=== PATIENT | female | born 1985 | race Two or more races ===

== ENCOUNTER 2020-06-27 23:45 | Emergency (ER) | payer SELFPAY ==
[~2020-06-27] VITALS: Ht 154.9 cm; Wt 74.4 kg
[2020-06-28] MEDS ORDERED: PHENAZOPYRIDINE 200 MG TABLET ONE
[2020-06-28] MEDS ORDERED: PHENAZOPYRIDINE 200 MG TABLET PO ONE
--- NOTE | 2020-06-28 00:03 | NUR ---
Pyridium given from triage, urine sent to lab. Pt had labs drawn in lobby.
[2020-06-28 00:11] LABS: MICROSCOPIC INDICATED
[2020-06-28] MEDS ORDERED: CEFTRIAXONE 1,000 MG IM ONE (00:30)
[2020-06-28] MEDS ORDERED: PLEASE ENTER ALLERGIES MC SCH (00:30)
[2020-06-28 00:37] LABS: BASOPHILS % (AUTO) 1 % (0-1); EOSINOPHILS % (AUTO) 2 % (1-7); LYMPHOCYTES % (AUTO) 32 % (22-44); MEAN CORPUSCULAR HEMOGLOBIN 30.9 pg (27.0-34.8); MEAN CORPUSCULAR HGB CONC 34.1 g/dL (32.4-35.8); MEAN PLATELET VOLUME 8.6 fL (7.4-10.4); MONOCYTES % (AUTO) 6 % (2-9); NEUTROPHILS % (AUTO) 61 % (42-75); PLATELET COUNT 297 x10^3/uL (130-400); RED BLOOD COUNT 4.56 x10^6/uL (3.82-5.3)
[2020-06-28 00:38] LABS: ALANINE AMINOTRANSFERASE 21 U/L (12-78); ALBUMIN 3.4 g/dL (3.4-5.0); ANION GAP 5 mmol/L (5-15); CALCIUM 8.3 mg/dL (8.5-10.1); CHLORIDE 108 mmol/L (98-107); CREATININE 0.77 mg/dL (0.55-1.02)
[2020-06-28 00:42] LABS: ALKALINE PHOSPHATASE 93 U/L (45-117); BILIRUBIN,TOTAL 0.2 mg/dL (0.2-1.0); TOTAL PROTEIN 7.2 g/dL (6.4-8.2)
[2020-06-28] MEDS ORDERED: ONDANSETRON 2MG/ML, 2ML ONE (00:59)
[2020-06-28] MEDS ORDERED: MORPHINE SULFATE 4 MG/ML, 1ML ONE ×2 (01:00→01:56)
[2020-06-28] MEDS ORDERED: SODIUM CHLORIDE FLUSH 10ML SYR IVF ONE (01:00)
[2020-06-28] MEDS ORDERED: ONDANSETRON 2MG/ML, 2ML IVPush ONE (01:00)
[2020-06-28 01:10] LABS: MD SCAN
[2020-06-28] MEDS: MORPHINE SULFATE 4 MG/ML, 1ML IVPush PRN ×2 (01:11→01:59)
--- NOTE | 2020-06-28 01:12 | NUR ---
piv placed then medicated per emar for nausea right flank pain at 12/04 erp asked to order ct
[2020-06-28] MEDS ORDERED: KETOROLAC 30 MG/1 ML ONE (02:06)
[2020-06-28 02:10] VITALS: BP 137/89
--- NOTE | 2020-06-28 02:11 | NUR ---
After toradol injection pain improved to 2/10 reviewed sxs to watch for a measures to help treat and prevent utis Discharged in care of
[2020-06-28] MEDS ORDERED: KETOROLAC 30 MG/1 ML IM ONE (02:30)
== END 2020-06-28 02:13 | disposition home or self-care (01) ==
LOC: ED 06-28 01:42
DX: N10 Acute pyelonephritis (principal); N39.0 Urinary tract infection, site not specified; R31.9 Hematuria, unspecified; R10.9 Unspecified abdominal pain; F17.210 Nicotine dependence, cigarettes, uncomplicated
CPT/HCPCS: 36415; 74176; 80053; 81001; 84703; 85025; 87086; 96372; 96374; 96375; 96376; 99285; J0696; J1885; J2270; J2405